=== PATIENT | female | born 1960 | race Caucasian/White ===

== ENCOUNTER 2016-09-28 10:31 | Inpatient (IN) | payer OTHER ==
[~2016-09-28] VITALS: Ht 162.6 cm; Wt 77.2 kg
[2016-09-28] VITALS (18 sets, daily range): BP systolic 89–134; BP diastolic 57–91
[~2016-09-28 10:31] MED LIST: BACLOFEN20 MG PO; CLONAZEPA PO; FLEXERIL10 MG PO; HALDOL0.5 MG PO; LIORESAL10 MG PO; LYRICA150 MG PO; METFORMI PO; OXYCODONE PO; SIMVASTATIN PO; SINGULAIR10 MG PO; ZYRTEC10 M1 PO; [UNRECOGNIZED DRUG - OTHER] PO
[2016-09-28 11:11] LABS: BASOPHIL COUNT 0.1 K/uL (0-0.1); EOSINOPHIL (%) 0 % (0-5); IMMATURE GRANULOCYTE (%) 2.7 % (0.0-0.7); IMMATURE GRANULOCYTE COUNT 0.9 K/uL; INSTRUMENT ABS NEUTROPHIL CT 29.8 K/uL; LYMPHOCYTE COUNT 1.3 K/uL (1.0-2.8); MEAN PLAT.VOLUME 9.5 uM^3 (9.5-12.4); MONOCYTE COUNT 1.4 K/uL (0-0.8); NEUTROPHIL (%) 89.4 % (45-76); NEUTROPHIL COUNT 29.8 K/uL (1.8-6.4); PLATELET COUNT 787 K/uL (156-360)
[2016-09-28 11:24] LABS: HEMATOCRIT 31.7 % (36.0-46.0); MCH 28.4 PG (29.0-34.0); MCHC 32.2 G/DL (30.0-36.0); MCV 88.3 FL (83-99); RBC DIS.WIDTH-CV 13.9 % (11.8-14.6); RBC DIS.WIDTH-SD 44.9 % (39-53); RED BLOOD COUNT 3.59 M/uL (3.80-5.20)
[2016-09-28 11:25] LABS: WHITE BLOOD COUNT 33.6 K/uL (4.1-10.2)
[2016-09-28 11:33] LABS: TROP-I INTERPRETATION NEGATIVE; TROPONIN-I < 0.01 ng/mL (0.0-0.30)
[2016-09-28 11:36] LABS: BASE EXCESS -4.1 mEq/L (-3 to +3); BICARBONATE 23.6 mEq/L (22-26); CARBOXY HGB 1.7 % (0-5); PCO2 55 mm Hg (35-45); PO2 97 mm Hg (80-100)
[2016-09-28 11:37] LABS: SITE RB; pH 7.24 (7.35-7.45)
[2016-09-28 11:37] LABS: INFLUENZA A VIRAL ANTIGEN NEGATIVE; INFLUENZA B VIRAL ANTIGEN NEGATIVE
[2016-09-28 11:38] LABS: COMMENTS - BLOOD GASES C+; DEVICE NRBM; FI02 100 %; O2 FLOW 15 L/MIN; TOTAL RESP RATE 12 resp/min
[2016-09-28 12:51] LABS: BASE EXCESS -5.2 mEq/L (-3 to +3); BICARBONATE 22.3 mEq/L (22-26); CARBOXY HGB 1.7 % (0-5); METHEMOGLOBIN 1.2 % (0-1.5); PCO2 52 mm Hg (35-45); PO2 67 mm Hg (80-100)
[2016-09-28 12:52] LABS: COMMENTS - BLOOD GASES C+; DEVICE MASK VENT; FI02 60 %; MODE SPONT; PEEP 5 CM/H20; PRES. SUPPORT 10 CM/H2O; SITE LR; TOTAL RESP RATE 12 resp/min; pH 7.24 (7.35-7.45)
[2016-09-28 13:22] LABS: CHLORIDE 102 mEq/L (99-109); POTASSIUM 5.7 mEq/L (3.7-5.4); SODIUM 139 mEq/L (136-147)
[2016-09-28 13:23] LABS: GLUCOSE 131 mg/dL (70-99)
[2016-09-28 13:25] LABS: ANION GAP 17 MEQ/L (2-14)
[2016-09-28 13:27] LABS: GFR ESTIMATE (CALCULATED) 22 mL/min/
[2016-09-28 13:28] LABS: UREA NITROGEN (BUN) 42 mg/dL (9-23)
[2016-09-28] MEDS ORDERED: FUROSEMIDE20 MG PO (15:35)
[2016-09-28] MEDS ORDERED: LEVOTHYROXINE50 MCG PO (15:35)
[2016-09-28] MEDS ORDERED: TRADJENTA5 MG PO (15:36)
[2016-09-28] MEDS ORDERED: PROTONIX40 MG PO (15:37)
[2016-09-28] MEDS ORDERED: ASPIR-LOW81 MG PO (15:37)
[2016-09-28] MEDS ORDERED: PRAVASTATIN SOD80 MG PO (15:38)
[2016-09-28] MEDS ORDERED: ATENOLOL50 MG PO (15:39)
[2016-09-28] MEDS ORDERED: DICLOFENAC POTA50 MG PO (15:39)
[2016-09-28] MEDS ORDERED: CLONAZEPAM2 MG PO (15:40)
[2016-09-28] MEDS ORDERED: METFORMIN HCL500 M1 PO (15:40)
[2016-09-28] MEDS ORDERED: CYCLOBENZAPRINE10 MG PO (15:42)
[2016-09-28] MEDS ORDERED: GABAPENTIN100 MG PO (15:44)
[2016-09-28] MEDS ORDERED: NORCO 5/3251 TABLET PO (15:46)
[2016-09-28] MEDS ORDERED: BACLOFEN10 MG PO (15:50)
[2016-09-28] MEDS ORDERED: TIZANIDINE HCL4 MG PO (15:54)
[2016-09-28] MEDS ORDERED: ESCITALOPRAM OX10 MG PO (15:55)
[2016-09-28 18:07] LABS: METH RESISTANT S AUREUS PCR NEGATIVE (NEGATIVE); PROBE CHECK PASS; SPECIMEN PROCESSING CONTROL PASS
[2016-09-28 19:00] LABS: EOSINOPHIL (%) 0.1 % (0-5); HEMATOCRIT 31.3 % (36.0-46.0); IMMATURE GRANULOCYTE (%) 1.4 % (0.0-0.7); IMMATURE GRANULOCYTE COUNT 0.4 K/uL; INSTRUMENT ABS NEUTROPHIL CT 23.6 K/uL; MCH 29.3 PG (29.0-34.0); MCHC 32.3 G/DL (30.0-36.0); MCV 90.7 FL (83-99); MEAN PLAT.VOLUME 9.3 uM^3 (9.5-12.4); MONOCYTE (%) 4.2 % (3-12); MONOCYTE COUNT 1.1 K/uL (0-0.8); NEUTROPHIL COUNT 23.6 K/uL (1.8-6.4); PLATELET COUNT 751 K/uL (156-360); RBC DIS.WIDTH-CV 14.4 % (11.8-14.6); RBC DIS.WIDTH-SD 47.7 % (39-53); RED BLOOD COUNT 3.45 M/uL (3.80-5.20); WHITE BLOOD COUNT 27.1 K/uL (4.1-10.2)
[2016-09-28 19:24] LABS: ALKALINE PHOSPHATASE 184 IU/L (3-129); ANION GAP 12 MEQ/L (2-14); CHLORIDE 100 MEQ/L (99-109); GFR ESTIMATE (CALCULATED) 26 mL/min/; MAGNESIUM 2.3 mg/dl (1.3-2.7); SAMPLE HEMOLYSIS CHECK 0; SAMPLE ICTERIC CHECK 0; SAMPLE LIPEMIA CHECK 0; SODIUM 137 MEQ/L (136-147); TOTAL BILIRUBIN 0.4 MG/DL (0.0-1.0); UREA NITROGEN (BUN) 38 mg/dL (9-23)
[2016-09-28 19:27] LABS: GLUCOSE 81 mg/dL (70-99); POTASSIUM 4.5 MEQ/L (3.7-5.4)
[2016-09-28 20:04] LABS: BASE EXCESS -2.3 mEq/L (-3 to +3); BICARBONATE 25.1 mEq/L (22-26); CARBOXY HGB 1.7 % (0-5); COMMENTS - BLOOD GASES A+C+; DEVICE NCHH; FI02 50 %; METHEMOGLOBIN 1.6 % (0-1.5); O2 FLOW 30 L/MIN; PCO2 56 mm Hg (35-45); PO2 60 mm Hg (80-100); SITE LR; pH 7.26 (7.35-7.45)
[2016-09-28 20:05] LABS: TOTAL RESP RATE 16 resp/min
[2016-09-28 20:14] LABS: POINT-OF-CARE METER ID UU14174217
[2016-09-28 21:27] LABS: ADD MIUA? YES; BILIRUBIN NEGATIVE; BLOOD MODERATE; COLOR YELLOW ((YELLOW)); GLUCOSE (STRIP) NEGATIVE; KETONES NEGATIVE; LEUKOCYTES LARGE; NITRITE POSITIVE; PROTEIN (STRIP) NEGATIVE; SPECIFIC GRAVITY 1.005 (1.000-1.030); UROBILINOGEN 0.2 MG/DL (0.2-1.0)
[2016-09-28 21:41] LABS: BACTERIA 2+ /HPF; EPITHELIAL CELLS NONE SEEN /HPF; MUCUS NONE SEEN /LPF; RED BLOOD CELLS 0-5 /HPF (0-5); UCUL ADDED? YES; UNCLASSIFIED CASTS 0-5 /LPF; UNCLASSIFIED CRYSTALS 3+ /HPF; WHITE BLOOD CELLS TNTC /HPF (0-5); WHITE BLOOD CELLS CLUMP MANY /HPF (0-5)
[2016-09-29] VITALS (23 sets, daily range): BP systolic 93–152; BP diastolic 47–69
[2016-09-29 00:23] LABS: POINT-OF-CARE METER ID UU13113803
[2016-09-29 05:54] LABS: BASOPHIL COUNT 0.1 K/uL (0-0.1); EOSINOPHIL (%) 0 % (0-5); HEMATOCRIT 28.8 % (36.0-46.0); IMMATURE GRANULOCYTE (%) 1.6 % (0.0-0.7); IMMATURE GRANULOCYTE COUNT 0.4 K/uL; INSTRUMENT ABS NEUTROPHIL CT 22.7 K/uL; LYMPHOCYTE COUNT 1.3 K/uL (1.0-2.8); MCH 29.3 PG (29.0-34.0); MCHC 31.9 G/DL (30.0-36.0); MCV 91.7 FL (83-99); MEAN PLAT.VOLUME 9.5 uM^3 (9.5-12.4); MONOCYTE (%) 4.5 % (3-12); MONOCYTE COUNT 1.1 K/uL (0-0.8); NEUTROPHIL (%) 88.7 % (45-76); NEUTROPHIL COUNT 22.7 K/uL (1.8-6.4); PLATELET COUNT 702 K/uL (156-360); RBC DIS.WIDTH-CV 14.6 % (11.8-14.6); RBC DIS.WIDTH-SD 48.7 % (39-53); RED BLOOD COUNT 3.14 M/uL (3.80-5.20); WHITE BLOOD COUNT 25.5 K/uL (4.1-10.2)
[2016-09-29 06:23] LABS: ANION GAP 14 MEQ/L (2-14); CHLORIDE 107 MEQ/L (99-109); GLUCOSE 98 mg/dL (70-99); POTASSIUM 5.1 MEQ/L (3.7-5.4); SAMPLE HEMOLYSIS CHECK 0; SAMPLE ICTERIC CHECK 0; SAMPLE LIPEMIA CHECK 0; UREA NITROGEN (BUN) 29 mg/dL (9-23)
[2016-09-29 06:27] LABS: GFR ESTIMATE (CALCULATED) 36 mL/min/; SODIUM 144 MEQ/L (136-147)
[2016-09-29 08:26] LABS: INTERNAL CONTROL VALID? YES
[2016-09-29 12:49] LABS: POINT-OF-CARE METER ID UU13113803
[2016-09-29 17:54] LABS: POINT-OF-CARE METER ID UU13113803
[2016-09-30] VITALS (15 sets, daily range): BP systolic 87–134; BP diastolic 46–72
[2016-09-30 01:06] LABS: POINT-OF-CARE METER ID UU14174217
[2016-09-30 05:28] LABS: POINT-OF-CARE METER ID UU14174217
[2016-09-30 06:17] LABS: BASOPHIL COUNT 0.1 K/uL (0-0.1); EOSINOPHIL (%) 0.6 % (0-5); EOSINOPHIL COUNT 0.1 K/uL (0-0.3); HEMATOCRIT 25.6 % (36.0-46.0); IMMATURE GRANULOCYTE (%) 2.4 % (0.0-0.7); IMMATURE GRANULOCYTE COUNT 0.5 K/uL; INSTRUMENT ABS NEUTROPHIL CT 15.5 K/uL; LYMPHOCYTE COUNT 1.8 K/uL (1.0-2.8); MCH 29.2 PG (29.0-34.0); MCHC 31.6 G/DL (30.0-36.0); MCV 92.4 FL (83-99); MEAN PLAT.VOLUME 9.3 uM^3 (9.5-12.4); MONOCYTE (%) 8.3 % (3-12); MONOCYTE COUNT 1.6 K/uL (0-0.8); NEUTROPHIL (%) 79.4 % (45-76); NEUTROPHIL COUNT 15.5 K/uL (1.8-6.4); PLATELET COUNT 662 K/uL (156-360); RBC DIS.WIDTH-CV 14.9 % (11.8-14.6); RBC DIS.WIDTH-SD 50.4 % (39-53); RED BLOOD COUNT 2.77 M/uL (3.80-5.20); WHITE BLOOD COUNT 19.5 K/uL (4.1-10.2)
[2016-09-30 06:47] LABS: ANION GAP 11 MEQ/L (2-14); CHLORIDE 107 MEQ/L (99-109); GFR ESTIMATE (CALCULATED) 45 mL/min/; GLUCOSE 130 mg/dL (70-99); MAGNESIUM 1.6 mg/dl (1.3-2.7); POTASSIUM 4.5 MEQ/L (3.7-5.4); SAMPLE HEMOLYSIS CHECK 0; SAMPLE ICTERIC CHECK 0; SAMPLE LIPEMIA CHECK 0; SODIUM 144 MEQ/L (136-147); UREA NITROGEN (BUN) 19 mg/dL (9-23)
[2016-10-01] VITALS (7 sets, daily range): BP systolic 106–122; BP diastolic 57–103
[2016-10-01 05:16] LABS: POINT-OF-CARE METER ID UU13113803
[2016-10-01 06:05] LABS: EOSINOPHIL (%) 0.3 % (0-5); HEMATOCRIT 26.2 % (36.0-46.0); IMMATURE GRANULOCYTE (%) 2.6 % (0.0-0.7); IMMATURE GRANULOCYTE COUNT 0.4 K/uL; INSTRUMENT ABS NEUTROPHIL CT 12.2 K/uL; LYMPHOCYTE COUNT 1.6 K/uL (1.0-2.8); MCH 28.9 PG (29.0-34.0); MCHC 31.7 G/DL (30.0-36.0); MCV 91.3 FL (83-99); MEAN PLAT.VOLUME 9.5 uM^3 (9.5-12.4); MONOCYTE (%) 7.7 % (3-12); MONOCYTE COUNT 1.2 K/uL (0-0.8); NEUTROPHIL (%) 78.8 % (45-76); NEUTROPHIL COUNT 12.2 K/uL (1.8-6.4); PLATELET COUNT 689 K/uL (156-360); RBC DIS.WIDTH-CV 14.8 % (11.8-14.6); RED BLOOD COUNT 2.87 M/uL (3.80-5.20); WHITE BLOOD COUNT 15.4 K/uL (4.1-10.2)
[2016-10-01 06:35] LABS: ANION GAP 11 MEQ/L (2-14); CHLORIDE 106 MEQ/L (99-109); GFR ESTIMATE (CALCULATED) 55 mL/min/; GLUCOSE 145 mg/dL (70-99); SAMPLE HEMOLYSIS CHECK 2; SAMPLE ICTERIC CHECK 0; SAMPLE LIPEMIA CHECK 0; SODIUM 143 MEQ/L (136-147); UREA NITROGEN (BUN) 14 mg/dL (9-23)
[2016-10-01 06:37] LABS: MAGNESIUM 1.9 mg/dl (1.3-2.7); POTASSIUM 5.4 MEQ/L (3.7-5.4)
[2016-10-01 11:31] LABS: POINT-OF-CARE METER ID UU13113803
[2016-10-01 16:33] LABS: POINT-OF-CARE METER ID UU13113803
[2016-10-02 00:18] VITALS: BP 146/74
[2016-10-02 06:49] LABS: ALKALINE PHOSPHATASE 128 IU/L (3-129); ANION GAP 12 MEQ/L (2-14); CHLORIDE 105 MEQ/L (99-109); GFR ESTIMATE (CALCULATED) > 59 mL/min/; GLUCOSE 127 mg/dL (70-99); MAGNESIUM 1.7 mg/dl (1.3-2.7); POTASSIUM 4.3 MEQ/L (3.7-5.4); SAMPLE HEMOLYSIS CHECK 0; SAMPLE ICTERIC CHECK 0; SAMPLE LIPEMIA CHECK 0; SODIUM 144 MEQ/L (136-147); TOTAL BILIRUBIN 0.3 MG/DL (0.0-1.0); UREA NITROGEN (BUN) 14 mg/dL (9-23)
[2016-10-02 06:55] VITALS: BP 131/75
[2016-10-02 07:15] LABS: EOSINOPHIL (%) 0 % (0-5); HEMATOCRIT 25.3 % (36.0-46.0); IMMATURE GRANULOCYTE (%) 3.6 % (0.0-0.7); IMMATURE GRANULOCYTE COUNT 0.7 K/uL; INSTRUMENT ABS NEUTROPHIL CT 13.9 K/uL; MCH 29.2 PG (29.0-34.0); MCV 91.3 FL (83-99); MEAN PLAT.VOLUME 9.7 uM^3 (9.5-12.4); MONOCYTE (%) 7.8 % (3-12); MONOCYTE COUNT 1.4 K/uL (0-0.8); NEUTROPHIL (%) 77.5 % (45-76); NEUTROPHIL COUNT 13.9 K/uL (1.8-6.4); PLATELET COUNT 729 K/uL (156-360); RBC DIS.WIDTH-CV 14.9 % (11.8-14.6); RBC DIS.WIDTH-SD 49.2 % (39-53); RED BLOOD COUNT 2.77 M/uL (3.80-5.20); WHITE BLOOD COUNT 17.9 K/uL (4.1-10.2)
[2016-10-02 08:45] LABS: IRON 69 MCG/DL (35-150)
[2016-10-02 10:13] LABS: GLUCOSE 120 mg/dL (70-99)
[2016-10-02 11:37] LABS: POINT-OF-CARE METER ID UU13113725
[2016-10-02 15:12] VITALS: BP 147/71
[2016-10-02 16:25] LABS: POINT-OF-CARE METER ID UU13113725
[2016-10-02 20:46] LABS: POINT-OF-CARE METER ID UU13113725
[2016-10-02 22:24] VITALS: BP 177/82
[2016-10-03 05:46] LABS: POINT-OF-CARE METER ID UU13113725
[2016-10-03 06:04] LABS: EOSINOPHIL (%) 0 % (0-5); HEMATOCRIT 26.3 % (36.0-46.0); IMMATURE GRANULOCYTE (%) 4.3 % (0.0-0.7); IMMATURE GRANULOCYTE COUNT 0.7 K/uL; INSTRUMENT ABS NEUTROPHIL CT 12.8 K/uL; LYMPHOCYTE COUNT 1.8 K/uL (1.0-2.8); MCH 29.2 PG (29.0-34.0); MCHC 31.2 G/DL (30.0-36.0); MCV 93.6 FL (83-99); MEAN PLAT.VOLUME 9.6 uM^3 (9.5-12.4); MONOCYTE (%) 6.9 % (3-12); MONOCYTE COUNT 1.1 K/uL (0-0.8); NEUTROPHIL COUNT 12.8 K/uL (1.8-6.4); NRBC (%) 0.2 /100 WBC (0-0); PLATELET COUNT 667 K/uL (156-360); RBC DIS.WIDTH-SD 50.6 % (39-53); RED BLOOD COUNT 2.81 M/uL (3.80-5.20); WHITE BLOOD COUNT 16.4 K/uL (4.1-10.2)
[2016-10-03 06:47] VITALS: BP 133/82
[2016-10-03 07:01] LABS: ALKALINE PHOSPHATASE 117 IU/L (3-129); ANION GAP 12 MEQ/L (2-14); CHLORIDE 107 MEQ/L (99-109); GFR ESTIMATE (CALCULATED) 55 mL/min/; GLUCOSE 113 mg/dL (70-99); MAGNESIUM 1.8 mg/dl (1.3-2.7); POTASSIUM 4.6 MEQ/L (3.7-5.4); SAMPLE HEMOLYSIS CHECK 0; SAMPLE ICTERIC CHECK 0; SAMPLE LIPEMIA CHECK 0; SODIUM 144 MEQ/L (136-147); UREA NITROGEN (BUN) 19 mg/dL (9-23)
[2016-10-03 07:05] LABS: TOTAL BILIRUBIN 0.4 MG/DL (0.0-1.0)
[2016-10-03 15:22] VITALS: BP 150/79
[2016-10-03 16:38] LABS: POINT-OF-CARE METER ID UU13113725
[2016-10-03 20:43] LABS: POINT-OF-CARE METER ID UU13113725
[2016-10-03 23:00] VITALS: BP 144/92
[2016-10-04 05:58] LABS: POINT-OF-CARE METER ID UU13113725
[2016-10-04 06:47] LABS: BASOPHIL COUNT 0.1 K/uL (0-0.1); EOSINOPHIL (%) 0.1 % (0-5); HEMATOCRIT 28.5 % (36.0-46.0); IMMATURE GRANULOCYTE (%) 4.3 % (0.0-0.7); IMMATURE GRANULOCYTE COUNT 0.8 K/uL; INSTRUMENT ABS NEUTROPHIL CT 13.5 K/uL; MCH 28.8 PG (29.0-34.0); MCHC 30.9 G/DL (30.0-36.0); MCV 93.1 FL (83-99); MEAN PLAT.VOLUME 9.6 uM^3 (9.5-12.4); MONOCYTE (%) 7.9 % (3-12); MONOCYTE COUNT 1.5 K/uL (0-0.8); NEUTROPHIL (%) 71.5 % (45-76); NEUTROPHIL COUNT 13.5 K/uL (1.8-6.4); NRBC (%) 0.5 /100 WBC (0-0); PLATELET COUNT 746 K/uL (156-360); RBC DIS.WIDTH-SD 49.8 % (39-53); RED BLOOD COUNT 3.06 M/uL (3.80-5.20); WHITE BLOOD COUNT 18.9 K/uL (4.1-10.2)
[2016-10-04 07:15] VITALS: BP 173/82
[2016-10-04 07:23] LABS: ANION GAP 12 MEQ/L (2-14); CHLORIDE 106 MEQ/L (99-109); GFR ESTIMATE (CALCULATED) 55 mL/min/; GLUCOSE 97 mg/dL (70-99); MAGNESIUM 1.7 mg/dl (1.3-2.7); POTASSIUM 4.1 MEQ/L (3.7-5.4); SAMPLE HEMOLYSIS CHECK 0; SAMPLE ICTERIC CHECK 0; SAMPLE LIPEMIA CHECK 0; SODIUM 145 MEQ/L (136-147); UREA NITROGEN (BUN) 20 mg/dL (9-23)
[2016-10-04] MEDS ORDERED: PREDNISONE10 MG PO (10:23)
[2016-10-04] MEDS ORDERED: QUETIAPINE FUMA25 MG PO (10:23)
[2016-10-04] MEDS ORDERED: LEVETIRACETAM500 MG PO (10:23)
[2016-10-04] MEDS ORDERED: BACTRIM,SEPT1 TABLET PO (10:39)
[2016-10-04] MEDS ORDERED: ZITHROMAX250 MG PO (10:39)
[2016-10-04 15:08] VITALS: BP 125/73
[2016-10-04 16:37] LABS: POINT-OF-CARE METER ID UU13113725
[2016-10-04 23:03] VITALS: BP 148/92
[2016-10-05 06:02] LABS: POINT-OF-CARE METER ID UU13113725
[2016-10-05 06:59] LABS: EOSINOPHIL (%) 0.1 % (0-5); HEMATOCRIT 29.2 % (36.0-46.0); IMMATURE GRANULOCYTE (%) 2.9 % (0.0-0.7); IMMATURE GRANULOCYTE COUNT 0.6 K/uL; INSTRUMENT ABS NEUTROPHIL CT 14.4 K/uL; LYMPHOCYTE COUNT 3.2 K/uL (1.0-2.8); MCH 28.5 PG (29.0-34.0); MCHC 31.2 G/DL (30.0-36.0); MCV 91.5 FL (83-99); MEAN PLAT.VOLUME 9.6 uM^3 (9.5-12.4); MONOCYTE (%) 6.3 % (3-12); MONOCYTE COUNT 1.2 K/uL (0-0.8); NEUTROPHIL COUNT 14.4 K/uL (1.8-6.4); NRBC (%) 0.4 /100 WBC (0-0); PLATELET COUNT 709 K/uL (156-360); RED BLOOD COUNT 3.19 M/uL (3.80-5.20); WHITE BLOOD COUNT 19.5 K/uL (4.1-10.2)
[2016-10-05 07:23] LABS: ANION GAP 13 MEQ/L (2-14); CHLORIDE 107 MEQ/L (99-109); GFR ESTIMATE (CALCULATED) 55 mL/min/; GLUCOSE 84 mg/dL (70-99); MAGNESIUM 1.6 mg/dl (1.3-2.7); POTASSIUM 4.1 MEQ/L (3.7-5.4); SAMPLE HEMOLYSIS CHECK 0; SAMPLE ICTERIC CHECK 0; SAMPLE LIPEMIA CHECK 0; SODIUM 145 MEQ/L (136-147); UREA NITROGEN (BUN) 18 mg/dL (9-23)
[2016-10-05 07:31] VITALS: BP 155/74
[2016-10-05 11:37] LABS: POINT-OF-CARE METER ID UU13113725
[2016-10-05 16:27] VITALS: BP 164/80
[2016-10-05 16:33] LABS: POINT-OF-CARE METER ID UU13113725
[2016-10-05 18:07] LABS: ADD MIUA? NO; BILIRUBIN NEGATIVE; BLOOD NEGATIVE; COLOR YELLOW ((YELLOW)); GLUCOSE (STRIP) NEGATIVE; KETONES 5; LEUKOCYTES NEGATIVE; NITRITE NEGATIVE; PROTEIN (STRIP) NEGATIVE; SPECIFIC GRAVITY 1.016 (1.000-1.030); UCUL ADDED? NO; UROBILINOGEN 0.2 MG/DL (0.2-1.0)
[2016-10-05 21:04] LABS: POINT-OF-CARE METER ID UU13113725
[2016-10-05 23:46] VITALS: BP 158/80
[2016-10-06 07:24] LABS: POINT-OF-CARE METER ID UU13113725
[2016-10-06 07:28] LABS: BASOPHIL COUNT 0.1 K/uL (0-0.1); EOSINOPHIL (%) 0.1 % (0-5); HEMATOCRIT 29.9 % (36.0-46.0); IMMATURE GRANULOCYTE (%) 2.1 % (0.0-0.7); IMMATURE GRANULOCYTE COUNT 0.4 K/uL; LYMPHOCYTE COUNT 3.5 K/uL (1.0-2.8); MCH 29.2 PG (29.0-34.0); MCHC 31.1 G/DL (30.0-36.0); MCV 93.7 FL (83-99); MEAN PLAT.VOLUME 9.7 uM^3 (9.5-12.4); MONOCYTE (%) 5.7 % (3-12); NEUTROPHIL (%) 72.2 % (45-76); NRBC (%) 0.1 /100 WBC (0-0); PLATELET COUNT 596 K/uL (156-360); RBC DIS.WIDTH-CV 15.2 % (11.8-14.6); RBC DIS.WIDTH-SD 49.7 % (39-53); RED BLOOD COUNT 3.19 M/uL (3.80-5.20); WHITE BLOOD COUNT 17.9 K/uL (4.1-10.2)
[2016-10-06 07:55] VITALS: BP 149/74
[2016-10-06 07:57] LABS: ALKALINE PHOSPHATASE 94 IU/L (3-129); ANION GAP 10 MEQ/L (2-14); CHLORIDE 105 MEQ/L (99-109); GFR ESTIMATE (CALCULATED) > 59 mL/min/; GLUCOSE 98 mg/dL (70-99); MAGNESIUM 1.7 mg/dl (1.3-2.7); POTASSIUM 3.6 MEQ/L (3.7-5.4); SAMPLE HEMOLYSIS CHECK 0; SAMPLE ICTERIC CHECK 0; SAMPLE LIPEMIA CHECK 0; SODIUM 143 MEQ/L (136-147); UREA NITROGEN (BUN) 16 mg/dL (9-23)
[2016-10-06 07:58] LABS: TOTAL BILIRUBIN 0.5 MG/DL (0.0-1.0)
[2016-10-06 11:23] VITALS: BP 164/75
[2016-10-06 15:43] VITALS: BP 188/85
[2016-10-06 16:22] LABS: POINT-OF-CARE METER ID UU13113725
[2016-10-06 23:25] VITALS: BP 158/73
[2016-10-07 06:53] LABS: EOSINOPHIL (%) 0.4 % (0-5); EOSINOPHIL COUNT 0.1 K/uL (0-0.3); HEMATOCRIT 33.8 % (36.0-46.0); IMMATURE GRANULOCYTE (%) 1.6 % (0.0-0.7); IMMATURE GRANULOCYTE COUNT 0.3 K/uL; LYMPHOCYTE COUNT 3.3 K/uL (1.0-2.8); MCH 28.4 PG (29.0-34.0); MCHC 30.8 G/DL (30.0-36.0); MCV 92.3 FL (83-99); MEAN PLAT.VOLUME 9.8 uM^3 (9.5-12.4); MONOCYTE (%) 6.4 % (3-12); NEUTROPHIL (%) 70.1 % (45-76); NRBC (%) 0.1 /100 WBC (0-0); PLATELET COUNT 698 K/uL (156-360); RBC DIS.WIDTH-CV 15.2 % (11.8-14.6); RBC DIS.WIDTH-SD 49.1 % (39-53); RED BLOOD COUNT 3.66 M/uL (3.80-5.20); WHITE BLOOD COUNT 15.8 K/uL (4.1-10.2)
[2016-10-07 07:08] LABS: ANION GAP 14 MEQ/L (2-14); CHLORIDE 103 MEQ/L (99-109); GFR ESTIMATE (CALCULATED) 55 mL/min/; GLUCOSE 72 mg/dL (70-99); MAGNESIUM 1.6 mg/dl (1.3-2.7); POTASSIUM 4.3 MEQ/L (3.7-5.4); SAMPLE HEMOLYSIS CHECK 0; SAMPLE ICTERIC CHECK 0; SAMPLE LIPEMIA CHECK 0; SODIUM 144 MEQ/L (136-147); UREA NITROGEN (BUN) 14 mg/dL (9-23)
[2016-10-07 08:51] VITALS: BP 160/80
[2016-10-07 11:38] LABS: POINT-OF-CARE METER ID UU13113725
[2016-10-07 17:17] LABS: POINT-OF-CARE METER ID UU13113725
[2016-10-07 17:51] VITALS: BP 150/85
[2016-10-07 18:47] LABS: BASE EXCESS 1.7 mEq/L (-3 to +3); BICARBONATE 25.7 mEq/L (22-26); CARBOXY HGB 1.7 % (0-5); METHEMOGLOBIN 1.6 % (0-1.5); PO2 59 mm Hg (80-100)
[2016-10-07 18:48] LABS: COMMENTS - BLOOD GASES A+C+; DEVICE ROOM AIR; FI02 21 %; O2 FLOW 0 L/MIN; PCO2 37 mm Hg (35-45); SITE LR; TOTAL RESP RATE 18 resp/min; pH 7.45 (7.35-7.45)
[2016-10-07 20:57] LABS: POINT-OF-CARE METER ID UU13113725
[2016-10-07 22:57] LABS: POINT-OF-CARE METER ID UU13113725
[2016-10-07 23:03] VITALS: BP 142/75
[2016-10-08 01:11] LABS: ADD MIUA? NO; BILIRUBIN NEGATIVE; BLOOD NEGATIVE; COLOR YELLOW ((YELLOW)); GLUCOSE (STRIP) NEGATIVE; KETONES 20; LEUKOCYTES NEGATIVE; NITRITE NEGATIVE; PROTEIN (STRIP) NEGATIVE; SPECIFIC GRAVITY 1.016 (1.000-1.030); UCUL ADDED? NO; UROBILINOGEN 0.2 MG/DL (0.2-1.0)
[2016-10-08 02:42] LABS: POINT-OF-CARE METER ID UU13113725
[2016-10-08 05:42] LABS: POINT-OF-CARE METER ID UU13113725
[2016-10-08 09:24] LABS: EOSINOPHIL (%) 0 % (0-5); HEMATOCRIT 31.9 % (36.0-46.0); IMMATURE GRANULOCYTE (%) 0.9 % (0.0-0.7); IMMATURE GRANULOCYTE COUNT 0.2 K/uL; LYMPHOCYTE COUNT 2.2 K/uL (1.0-2.8); MCH 29.2 PG (29.0-34.0); MCHC 31.3 G/DL (30.0-36.0); MEAN PLAT.VOLUME 9.9 uM^3 (9.5-12.4); MONOCYTE (%) 5.2 % (3-12); NEUTROPHIL (%) 82.2 % (45-76); PLATELET COUNT 626 K/uL (156-360); RBC DIS.WIDTH-CV 16.3 % (11.8-14.6); RBC DIS.WIDTH-SD 50.5 % (39-53); RED BLOOD COUNT 3.43 M/uL (3.80-5.20); WHITE BLOOD COUNT 19.4 K/uL (4.1-10.2)
[2016-10-08 11:22] LABS: ANION GAP 17 MEQ/L (2-14); CHLORIDE 108 MEQ/L (99-109); GFR ESTIMATE (CALCULATED) 50 mL/min/; GLUCOSE 86 mg/dL (70-99); POTASSIUM 4.2 MEQ/L (3.7-5.4); SAMPLE HEMOLYSIS CHECK 0; SAMPLE ICTERIC CHECK 0; SAMPLE LIPEMIA CHECK 0; SODIUM 150 MEQ/L (136-147); UREA NITROGEN (BUN) 20 mg/dL (9-23)
[2016-10-08 11:26] LABS: MAGNESIUM 1.9 mg/dl (1.3-2.7)
[2016-10-08 11:32] LABS: POINT-OF-CARE METER ID UU13113725
[2016-10-08 16:03] VITALS: BP 134/75
[2016-10-08 16:19] LABS: POINT-OF-CARE METER ID UU13113725
[2016-10-08 17:14] LABS: APPEARANCE CLEAR/COLORLESS; CSF EOSINOPHILS 0 % (0-25); MONO RAW COUNT 88; MONONUCLEAR WBC'S 100 % (50-90); POLYNUCLEAR WBC'S 0 % (0-3); RED CELL AREA COUNTED 18; RED CELL COUNT 0 /MM^3 (0-1); RED CELL DILUTION 1; WBC AREA COUNTED 18; WBC DILUTION 1; WHITE CELL COUNT 3 /MM^3 (0-5); WHITE CELL RAW COUNT 6
[2016-10-08 20:51] LABS: POINT-OF-CARE METER ID UU13113725
[2016-10-09] VITALS (12 sets, daily range): BP systolic 85–154; BP diastolic 38–78
[2016-10-09 06:59] LABS: BASOPHIL COUNT 0.1 K/uL (0-0.1); EOSINOPHIL (%) 0.1 % (0-5); HEMATOCRIT 35.8 % (36.0-46.0); IMMATURE GRANULOCYTE (%) 1.2 % (0.0-0.7); IMMATURE GRANULOCYTE COUNT 0.2 K/uL; INSTRUMENT ABS NEUTROPHIL CT 14.2 K/uL; LYMPHOCYTE COUNT 1.6 K/uL (1.0-2.8); MCH 29.3 PG (29.0-34.0); MCHC 31.6 G/DL (30.0-36.0); MCV 92.7 FL (83-99); MEAN PLAT.VOLUME 10.6 uM^3 (9.5-12.4); MONOCYTE (%) 5.6 % (3-12); NEUTROPHIL (%) 83.1 % (45-76); NEUTROPHIL COUNT 14.2 K/uL (1.8-6.4); NRBC (%) 0.3 /100 WBC (0-0); PLATELET COUNT 622 K/uL (156-360); RBC DIS.WIDTH-CV 17.2 % (11.8-14.6); RBC DIS.WIDTH-SD 53.1 % (39-53); RED BLOOD COUNT 3.86 M/uL (3.80-5.20)
[2016-10-09 07:25] LABS: ALKALINE PHOSPHATASE 105 IU/L (3-129); ANION GAP 27 MEQ/L (2-14); CHLORIDE 113 MEQ/L (99-109); GFR ESTIMATE (CALCULATED) 29 mL/min/; GLUCOSE 87 mg/dL (70-99); MAGNESIUM 1.8 mg/dl (1.3-2.7); POTASSIUM 4.7 MEQ/L (3.7-5.4); SAMPLE HEMOLYSIS CHECK 0; SAMPLE ICTERIC CHECK 0; SAMPLE LIPEMIA CHECK 0; SODIUM 160 MEQ/L (136-147); TOTAL BILIRUBIN 0.9 MG/DL (0.0-1.0); UREA NITROGEN (BUN) 32 mg/dL (9-23)
[2016-10-09 07:27] LABS: POINT-OF-CARE METER ID UU13113725
[2016-10-09 08:17] LABS: BASE EXCESS -1.5 mEq/L (-3 to +3); BICARBONATE 22.8 mEq/L (22-26); METHEMOGLOBIN 1.5 % (0-1.5); PCO2 36 mm Hg (35-45); pH 7.41 (7.35-7.45)
[2016-10-09 08:18] LABS: COMMENTS - BLOOD GASES A+C+; DEVICE 840 PB; FI02 100 %; MECHANICAL RATE 14 resp/min; MODE AC; PEEP 5 CM/H20; PO2 356 mm Hg (80-100); SITE LR; TIDAL VOLUME 450 ML; TOTAL RESP RATE 16 resp/min
[2016-10-09 09:05] LABS: MAGNESIUM 1.6 mg/dl (1.3-2.7)
[2016-10-09 09:38] LABS: INTER. NORMALIZED RATIO 1.6; PTT 24.8 (25-32)
[2016-10-09 09:44] LABS: ADD MIUA? YES; BILIRUBIN NEGATIVE; BLOOD MODERATE; COLOR YELLOW ((YELLOW)); GLUCOSE (STRIP) NEGATIVE; KETONES NEGATIVE; LEUKOCYTES NEGATIVE; NITRITE NEGATIVE; PROTEIN (STRIP) NEGATIVE; SPECIFIC GRAVITY 1.009 (1.000-1.030); UROBILINOGEN 0.2 MG/DL (0.2-1.0)
[2016-10-09 10:59] LABS: METH RESISTANT S AUREUS PCR NEGATIVE (NEGATIVE); PROBE CHECK PASS; SPECIMEN PROCESSING CONTROL PASS
[2016-10-09 11:26] LABS: BACTERIA RARE /HPF; EPITHELIAL CELLS RARE /HPF; MUCUS NONE SEEN /LPF; RED BLOOD CELLS 0-5 /HPF (0-5); UCUL ADDED? NO
[2016-10-09 12:37] LABS: POINT-OF-CARE METER ID UU13113731
[2016-10-09 14:20] LABS: ANION GAP 15 MEQ/L (2-14); CHLORIDE 121 MEQ/L (99-109); GFR ESTIMATE (CALCULATED) 33 mL/min/; GLUCOSE 116 mg/dL (70-99); SAMPLE HEMOLYSIS CHECK 0; SAMPLE ICTERIC CHECK 0; SAMPLE LIPEMIA CHECK 0; SODIUM 154 MEQ/L (136-147); UREA NITROGEN (BUN) 34 mg/dL (9-23)
[2016-10-09 15:19] LABS: POTASSIUM 2.8 MEQ/L (3.7-5.4)
[2016-10-09 17:43] LABS: TROP-I INTERPRETATION INDETERMINATE; TROPONIN-I 0.31 ng/mL (0.0-0.30)
[2016-10-09 20:00] LABS: BASE EXCESS -4.5 mEq/L (-3 to +3); BICARBONATE 20.2 mEq/L (22-26); CARBOXY HGB 1.5 % (0-5); COMMENTS - BLOOD GASES C+; DEVICE VENTILATOR; FI02 30 %; MECHANICAL RATE 14 resp/min; METHEMOGLOBIN 1.4 % (0-1.5); MODE AC; PCO2 35 mm Hg (35-45); PEEP 5 CM/H20; PO2 58 mm Hg (80-100); SITE A-LINE; TIDAL VOLUME 450 ML; TOTAL RESP RATE 18 resp/min; pH 7.37 (7.35-7.45)
[2016-10-09 20:44] LABS: ANION GAP 14 MEQ/L (2-14); CHLORIDE 119 MEQ/L (99-109); GFR ESTIMATE (CALCULATED) 38 mL/min/; SAMPLE HEMOLYSIS CHECK 0; SAMPLE ICTERIC CHECK 0; SAMPLE LIPEMIA CHECK 0; SODIUM 152 MEQ/L (136-147); UREA NITROGEN (BUN) 34 mg/dL (9-23)
[2016-10-09 20:45] LABS: TROP-I INTERPRETATION NEGATIVE; TROPONIN-I 0.27 ng/mL (0.0-0.30)
[2016-10-09 20:52] LABS: ALKALINE PHOSPHATASE 66 IU/L (3-129); GLUCOSE 81 mg/dL (70-99); MAGNESIUM 2.1 mg/dl (1.3-2.7); TOTAL BILIRUBIN 0.7 MG/DL (0.0-1.0)
[2016-10-09 21:01] LABS: HEMATOCRIT 27.7 % (36.0-46.0); MCH 29.5 PG (29.0-34.0); MCHC 31.4 G/DL (30.0-36.0); MCV 93.9 FL (83-99); NRBC (%) 2.7 /100 WBC (0-0); RBC DIS.WIDTH-CV 17.9 % (11.8-14.6); RBC DIS.WIDTH-SD 55.7 % (39-53); WHITE BLOOD COUNT 11.7 K/uL (4.1-10.2)
[2016-10-09 21:02] LABS: RED BLOOD COUNT 2.95 M/uL (3.80-5.20)
[2016-10-09 22:47] LABS: PLATELET COUNT 186 K/uL (156-360)
[2016-10-10 00:48] LABS: CHLORIDE 122 mEq/L (99-109); SODIUM 153 mEq/L (136-147)
[2016-10-10 00:49] LABS: MAGNESIUM 2.1 mg/dL (1.3-2.7)
[2016-10-10 00:50] LABS: GLUCOSE 73 mg/dL (70-99)
[2016-10-10 00:52] LABS: ANION GAP 14 MEQ/L (2-14)
[2016-10-10 00:54] LABS: GFR ESTIMATE (CALCULATED) 38 mL/min/
[2016-10-10 00:55] LABS: UREA NITROGEN (BUN) 36 mg/dL (9-23)
[2016-10-10 01:00] LABS: TROP-I INTERPRETATION NEGATIVE; TROPONIN-I 0.21 ng/mL (0.0-0.30)
[2016-10-10 01:03] LABS: POTASSIUM 4.3 mEq/L (3.7-5.4)
[2016-10-10 05:50] LABS: EOSINOPHIL (%) 0 % (0-5); HEMATOCRIT 28.8 % (36.0-46.0); IMMATURE GRANULOCYTE (%) 1.1 % (0.0-0.7); IMMATURE GRANULOCYTE COUNT 0.1 K/uL; INSTRUMENT ABS NEUTROPHIL CT 9.5 K/uL; LYMPHOCYTE COUNT 0.9 K/uL (1.0-2.8); MCHC 30.6 G/DL (30.0-36.0); MEAN PLAT.VOLUME 11.1 uM^3 (9.5-12.4); MONOCYTE (%) 6.4 % (3-12); MONOCYTE COUNT 0.7 K/uL (0-0.8); NEUTROPHIL (%) 84.2 % (45-76); NEUTROPHIL COUNT 9.5 K/uL (1.8-6.4); NRBC (%) 2.1 /100 WBC (0-0); PLATELET COUNT 150 K/uL (156-360); RBC DIS.WIDTH-CV 18.2 % (11.8-14.6); RBC DIS.WIDTH-SD 59.2 % (39-53); RED BLOOD COUNT 3.03 M/uL (3.80-5.20); WHITE BLOOD COUNT 11.3 K/uL (4.1-10.2)
[2016-10-10 07:00] VITALS: BP 105/52
[2016-10-10 07:41] LABS: ANION GAP 14 MEQ/L (2-14); CHLORIDE 119 MEQ/L (99-109); GFR ESTIMATE (CALCULATED) 38 mL/min/; GLUCOSE 87 mg/dL (70-99); MAGNESIUM 2.2 mg/dl (1.3-2.7); SAMPLE HEMOLYSIS CHECK 0; SAMPLE ICTERIC CHECK 0; SAMPLE LIPEMIA CHECK 0; SODIUM 155 MEQ/L (136-147); UREA NITROGEN (BUN) 34 mg/dL (9-23)
[2016-10-10 07:42] LABS: POTASSIUM 3.3 MEQ/L (3.7-5.4)
[2016-10-10 12:18] LABS: POINT-OF-CARE METER ID UU14174217
[2016-10-10 19:04] LABS: BASE EXCESS 1.9 mEq/L (-3 to +3); CARBOXY HGB 1.7 % (0-5); METHEMOGLOBIN 1.8 % (0-1.5)
[2016-10-10 19:05] LABS: PCO2 30 mm Hg (35-45); PO2 72 mm Hg (80-100); pH 7.52 (7.35-7.45)
[2016-10-10 19:06] LABS: BICARBONATE 24.5 mEq/L (22-26); COMMENTS - BLOOD GASES C+ANA; DEVICE 840 PB; FI02 30 %; MECHANICAL RATE 14 resp/min; MODE AC; PEEP 5 CM/H20; SITE ALINE; TIDAL VOLUME 450 ML; TOTAL RESP RATE 22 resp/min
[2016-10-10 21:00] VITALS: BP 91/50
[2016-10-10 22:00] VITALS: BP 90/46
[2016-10-10 22:29] LABS: C DIFF TOXIN NEGATIVE (NEGATIVE)
[2016-10-10 22:31] LABS: PROBE CHECK PASS; SPECIMEN PROCESSING CONTROL PASS
[2016-10-11] VITALS (9 sets, daily range): BP systolic 80–116; BP diastolic 38–61
[2016-10-11 00:30] LABS: POINT-OF-CARE METER ID UU13113803
[2016-10-11 05:41] LABS: POINT-OF-CARE METER ID UU14174217
[2016-10-11 06:19] LABS: CHLORIDE 109 MEQ/L (99-109); GFR ESTIMATE (CALCULATED) > 59 mL/min/; GLUCOSE 134 mg/dL (70-99); POTASSIUM 2.7 MEQ/L (3.7-5.4); SODIUM 141 MEQ/L (136-147); UREA NITROGEN (BUN) 17 mg/dL (9-23)
[2016-10-11 06:31] LABS: ANION GAP 9 MEQ/L (2-14); SAMPLE HEMOLYSIS CHECK 0; SAMPLE ICTERIC CHECK 0; SAMPLE LIPEMIA CHECK 0
[2016-10-11 06:35] LABS: MAGNESIUM 1.6 mg/dl (1.3-2.7)
[2016-10-11 07:22] LABS: MCH 28.8 PG (29.0-34.0); MCHC 30.8 G/DL (30.0-36.0); MCV 93.6 FL (83-99); NRBC (%) 0.3 /100 WBC (0-0); RBC DIS.WIDTH-CV 17.6 % (11.8-14.6); RED BLOOD COUNT 2.67 M/uL (3.80-5.20); WHITE BLOOD COUNT 10.8 K/uL (4.1-10.2)
[2016-10-11 08:53] LABS: EOSINOPHIL (%) 0.1 % (0-5); IMMATURE GRANULOCYTE (%) 0.7 % (0.0-0.7); IMMATURE GRANULOCYTE COUNT 0.1 K/uL; INSTRUMENT ABS NEUTROPHIL CT 9.4 K/uL; LYMPHOCYTE COUNT 0.7 K/uL (1.0-2.8); MEAN PLAT.VOLUME 12.3 uM^3 (9.5-12.4); MONOCYTE (%) 4.9 % (3-12); MONOCYTE COUNT 0.5 K/uL (0-0.8); NEUTROPHIL (%) 87.8 % (45-76); NEUTROPHIL COUNT 9.4 K/uL (1.8-6.4)
[2016-10-11 08:55] LABS: PLATELET COUNT 85 K/uL (156-360)
[2016-10-12] VITALS (17 sets, daily range): BP systolic 98–143; BP diastolic 56–77
[2016-10-12 01:37] LABS: POINT-OF-CARE METER ID UU13113803; POINT-OF-CARE USER ID RADDRS44
[2016-10-12 05:56] LABS: EOSINOPHIL (%) 0.1 % (0-5); HEMATOCRIT 25.3 % (36.0-46.0); IMMATURE GRANULOCYTE (%) 0.4 % (0.0-0.7); INSTRUMENT ABS NEUTROPHIL CT 8.4 K/uL; LYMPHOCYTE COUNT 0.8 K/uL (1.0-2.8); MCH 29.2 PG (29.0-34.0); MCHC 31.6 G/DL (30.0-36.0); MCV 92.3 FL (83-99); MEAN PLAT.VOLUME 12.8 uM^3 (9.5-12.4); MONOCYTE (%) 6.6 % (3-12); MONOCYTE COUNT 0.7 K/uL (0-0.8); NEUTROPHIL (%) 85.2 % (45-76); NEUTROPHIL COUNT 8.4 K/uL (1.8-6.4); PLATELET COUNT 75 K/uL (156-360); RBC DIS.WIDTH-CV 17.2 % (11.8-14.6); RBC DIS.WIDTH-SD 55.8 % (39-53); RED BLOOD COUNT 2.74 M/uL (3.80-5.20); WHITE BLOOD COUNT 9.9 K/uL (4.1-10.2)
[2016-10-12 06:25] LABS: ANION GAP 5 MEQ/L (2-14); CHLORIDE 109 MEQ/L (99-109); GFR ESTIMATE (CALCULATED) > 59 mL/min/; GLUCOSE 130 mg/dL (70-99); MAGNESIUM 1.6 mg/dl (1.3-2.7); SAMPLE HEMOLYSIS CHECK 0; SAMPLE ICTERIC CHECK 0; SAMPLE LIPEMIA CHECK 0; SODIUM 146 MEQ/L (136-147); UREA NITROGEN (BUN) 7 mg/dL (9-23)
[2016-10-12 11:50] LABS: BASE EXCESS 8.6 mEq/L (-3 to +3); BICARBONATE 33.4 mEq/L (22-26); CARBOXY HGB 2.1 % (0-5); COMMENTS - BLOOD GASES A+C+; METHEMOGLOBIN 1.3 % (0-1.5); PCO2 47 mm Hg (35-45); PO2 68 mm Hg (80-100); SITE RR; pH 7.46 (7.35-7.45)
[2016-10-12 11:51] LABS: FI02 21 %
[2016-10-12 20:42] LABS: ANION GAP 8 MEQ/L (2-14); CHLORIDE 105 MEQ/L (99-109); GFR ESTIMATE (CALCULATED) > 59 mL/min/; GLUCOSE 128 mg/dL (70-99); MAGNESIUM 2.1 mg/dl (1.3-2.7); POTASSIUM 3.1 MEQ/L (3.7-5.4); SAMPLE HEMOLYSIS CHECK 1; SAMPLE ICTERIC CHECK 0; SAMPLE LIPEMIA CHECK 0; SODIUM 144 MEQ/L (136-147); UREA NITROGEN (BUN) 4 mg/dL (9-23)
[2016-10-12 23:28] LABS: POINT-OF-CARE USER ID RADDRS44
[2016-10-13] VITALS (23 sets, daily range): BP systolic 118–157; BP diastolic 50–104
[2016-10-13 06:27] LABS: EOSINOPHIL (%) 0.3 % (0-5); HEMATOCRIT 25.3 % (36.0-46.0); IMMATURE GRANULOCYTE (%) 0.7 % (0.0-0.7); IMMATURE GRANULOCYTE COUNT 0.1 K/uL; INSTRUMENT ABS NEUTROPHIL CT 5.1 K/uL; MCH 29.1 PG (29.0-34.0); MCHC 30.8 G/DL (30.0-36.0); MCV 94.4 FL (83-99); MEAN PLAT.VOLUME 12.1 uM^3 (9.5-12.4); MONOCYTE (%) 8.6 % (3-12); MONOCYTE COUNT 0.6 K/uL (0-0.8); NEUTROPHIL COUNT 5.1 K/uL (1.8-6.4); NRBC (%) 0.3 /100 WBC (0-0); RBC DIS.WIDTH-SD 57.3 % (39-53); RED BLOOD COUNT 2.68 M/uL (3.80-5.20)
[2016-10-13 06:29] LABS: PLATELET COUNT 110 K/uL (156-360); WHITE BLOOD COUNT 6.8 K/uL (4.1-10.2)
[2016-10-13 06:48] LABS: ANION GAP 8 MEQ/L (2-14); CHLORIDE 108 MEQ/L (99-109); GFR ESTIMATE (CALCULATED) > 59 mL/min/; GLUCOSE 163 mg/dL (70-99); POTASSIUM 3.4 MEQ/L (3.7-5.4); SAMPLE HEMOLYSIS CHECK 0; SAMPLE ICTERIC CHECK 0; SAMPLE LIPEMIA CHECK 0; SODIUM 148 MEQ/L (136-147); UREA NITROGEN (BUN) 4 mg/dL (9-23)
[2016-10-13 13:31] LABS: POINT-OF-CARE METER ID UU13113731
[2016-10-13 18:00] LABS: POINT-OF-CARE METER ID UU13113731
[2016-10-13 20:15] LABS: ANION GAP 6 MEQ/L (2-14); CHLORIDE 108 MEQ/L (99-109); GFR ESTIMATE (CALCULATED) > 59 mL/min/; MAGNESIUM 1.9 mg/dl (1.3-2.7); POTASSIUM 3.4 MEQ/L (3.7-5.4); SAMPLE HEMOLYSIS CHECK 0; SAMPLE ICTERIC CHECK 0; SAMPLE LIPEMIA CHECK 0; SODIUM 147 MEQ/L (136-147); UREA NITROGEN (BUN) 4 mg/dL (9-23)
[2016-10-13 20:16] LABS: GLUCOSE 117 mg/dL (70-99)
[2016-10-14] VITALS (14 sets, daily range): BP systolic 116–154; BP diastolic 60–86
[2016-10-14 00:18] LABS: POINT-OF-CARE METER ID UU13113731; POINT-OF-CARE USER ID RADDRS44
[2016-10-14 05:19] LABS: POINT-OF-CARE METER ID UU14174217; POINT-OF-CARE USER ID RADDRS44
[2016-10-14 06:15] LABS: EOSINOPHIL (%) 0.5 % (0-5); HEMATOCRIT 26.6 % (36.0-46.0); IMMATURE GRANULOCYTE (%) 1.4 % (0.0-0.7); IMMATURE GRANULOCYTE COUNT 0.1 K/uL; INSTRUMENT ABS NEUTROPHIL CT 5.9 K/uL; LYMPHOCYTE COUNT 1.6 K/uL (1.0-2.8); MCH 29.2 PG (29.0-34.0); MCHC 30.5 G/DL (30.0-36.0); MEAN PLAT.VOLUME 11.3 uM^3 (9.5-12.4); MONOCYTE (%) 9.2 % (3-12); MONOCYTE COUNT 0.8 K/uL (0-0.8); NEUTROPHIL (%) 69.9 % (45-76); NEUTROPHIL COUNT 5.9 K/uL (1.8-6.4); NRBC (%) 0.2 /100 WBC (0-0); RBC DIS.WIDTH-CV 17.4 % (11.8-14.6); RBC DIS.WIDTH-SD 58.6 % (39-53); RED BLOOD COUNT 2.77 M/uL (3.80-5.20); WHITE BLOOD COUNT 8.4 K/uL (4.1-10.2)
[2016-10-14 06:17] LABS: PLATELET COUNT 164 K/uL (156-360)
[2016-10-14 06:58] LABS: ANION GAP 8 MEQ/L (2-14); CHLORIDE 109 MEQ/L (99-109); GFR ESTIMATE (CALCULATED) > 59 mL/min/; MAGNESIUM 1.8 mg/dl (1.3-2.7); POTASSIUM 3.8 MEQ/L (3.7-5.4); SAMPLE HEMOLYSIS CHECK 0; SAMPLE ICTERIC CHECK 0; SAMPLE LIPEMIA CHECK 0; SODIUM 148 MEQ/L (136-147); UREA NITROGEN (BUN) 4 mg/dL (9-23)
[2016-10-14 06:59] LABS: GLUCOSE 200 mg/dL (70-99)
[2016-10-14 09:17] LABS: ANION GAP 5 MEQ/L (2-14); CHLORIDE 107 MEQ/L (99-109); MAGNESIUM 1.8 mg/dl (1.3-2.7); POTASSIUM 3.8 MEQ/L (3.7-5.4); SAMPLE HEMOLYSIS CHECK 0; SAMPLE ICTERIC CHECK 0; SAMPLE LIPEMIA CHECK 0; SODIUM 146 MEQ/L (136-147)
[2016-10-14 09:23] LABS: GFR ESTIMATE (CALCULATED) > 59 mL/min/; GLUCOSE 222 mg/dL (70-99); UREA NITROGEN (BUN) 5 mg/dL (9-23)
[2016-10-14 12:28] LABS: POINT-OF-CARE METER ID UU13113731
[2016-10-14 18:00] LABS: POINT-OF-CARE METER ID UU13113731
[2016-10-14 20:10] LABS: ANION GAP 6 MEQ/L (2-14); CHLORIDE 106 MEQ/L (99-109); MAGNESIUM 1.9 mg/dl (1.3-2.7); SAMPLE HEMOLYSIS CHECK 0; SAMPLE ICTERIC CHECK 0; SAMPLE LIPEMIA CHECK 0; SODIUM 146 MEQ/L (136-147)
[2016-10-14 20:15] LABS: GFR ESTIMATE (CALCULATED) > 59 mL/min/; GLUCOSE 162 mg/dL (70-99); UREA NITROGEN (BUN) 6 mg/dL (9-23)
[2016-10-15] VITALS (10 sets, daily range): BP systolic 108–148; BP diastolic 62–81
[2016-10-15 05:48] LABS: EOSINOPHIL (%) 0.5 % (0-5); HEMATOCRIT 25.3 % (36.0-46.0); IMMATURE GRANULOCYTE (%) 1.9 % (0.0-0.7); IMMATURE GRANULOCYTE COUNT 0.2 K/uL; INSTRUMENT ABS NEUTROPHIL CT 4.2 K/uL; LYMPHOCYTE COUNT 2.8 K/uL (1.0-2.8); MCH 29.2 PG (29.0-34.0); MCHC 30.8 G/DL (30.0-36.0); MCV 94.8 FL (83-99); MEAN PLAT.VOLUME 10.5 uM^3 (9.5-12.4); MONOCYTE (%) 10.9 % (3-12); MONOCYTE COUNT 0.9 K/uL (0-0.8); NEUTROPHIL (%) 51.9 % (45-76); NEUTROPHIL COUNT 4.2 K/uL (1.8-6.4); RBC DIS.WIDTH-CV 17.7 % (11.8-14.6); RBC DIS.WIDTH-SD 56.9 % (39-53); RED BLOOD COUNT 2.67 M/uL (3.80-5.20)
[2016-10-15 05:52] LABS: PLATELET COUNT 249 K/uL (156-360)
[2016-10-15 06:00] LABS: ANION GAP 6 MEQ/L (2-14); CHLORIDE 107 MEQ/L (99-109); GFR ESTIMATE (CALCULATED) > 59 mL/min/; GLUCOSE 99 mg/dL (70-99); MAGNESIUM 1.8 mg/dl (1.3-2.7); POTASSIUM 3.9 MEQ/L (3.7-5.4); SAMPLE HEMOLYSIS CHECK 0; SAMPLE ICTERIC CHECK 0; SAMPLE LIPEMIA CHECK 0; SODIUM 146 MEQ/L (136-147); UREA NITROGEN (BUN) 6 mg/dL (9-23)
[2016-10-15 12:42] LABS: POINT-OF-CARE METER ID UU13113731
[2016-10-15 17:25] LABS: POINT-OF-CARE METER ID UU13113731
[2016-10-15 20:28] LABS: ANION GAP 8 MEQ/L (2-14); CHLORIDE 106 MEQ/L (99-109); MAGNESIUM 1.9 mg/dl (1.3-2.7); POTASSIUM 3.8 MEQ/L (3.7-5.4); SAMPLE HEMOLYSIS CHECK 0; SAMPLE ICTERIC CHECK 0; SAMPLE LIPEMIA CHECK 0; SODIUM 145 MEQ/L (136-147)
[2016-10-15 20:33] LABS: GFR ESTIMATE (CALCULATED) > 59 mL/min/; GLUCOSE 166 mg/dL (70-99); UREA NITROGEN (BUN) 8 mg/dL (9-23)
[2016-10-15 21:40] LABS: POINT-OF-CARE METER ID UU13113731
[2016-10-16] VITALS (17 sets, daily range): BP systolic 111–135; BP diastolic 52–82
[2016-10-16 06:10] LABS: CHLORIDE 106 MEQ/L (99-109); POTASSIUM 3.7 MEQ/L (3.7-5.4); SODIUM 145 MEQ/L (136-147)
[2016-10-16 06:35] LABS: ALKALINE PHOSPHATASE 76 IU/L (3-129); ANION GAP 8 MEQ/L (2-14); GFR ESTIMATE (CALCULATED) > 59 mL/min/; MAGNESIUM 1.9 mg/dl (1.3-2.7); SAMPLE HEMOLYSIS CHECK 0; SAMPLE ICTERIC CHECK 0; SAMPLE LIPEMIA CHECK 0; UREA NITROGEN (BUN) 8 mg/dL (9-23)
[2016-10-16 06:40] LABS: EOSINOPHIL (%) 0.6 % (0-5); HEMATOCRIT 25.2 % (36.0-46.0); IMMATURE GRANULOCYTE (%) 1.9 % (0.0-0.7); IMMATURE GRANULOCYTE COUNT 0.1 K/uL; INSTRUMENT ABS NEUTROPHIL CT 3.8 K/uL; LYMPHOCYTE COUNT 2.4 K/uL (1.0-2.8); MCH 29.4 PG (29.0-34.0); MCHC 30.6 G/DL (30.0-36.0); MCV 96.2 FL (83-99); MEAN PLAT.VOLUME 10.2 uM^3 (9.5-12.4); MONOCYTE COUNT 0.9 K/uL (0-0.8); NEUTROPHIL (%) 52.5 % (45-76); NEUTROPHIL COUNT 3.8 K/uL (1.8-6.4); PLATELET COUNT 338 K/uL (156-360); RBC DIS.WIDTH-CV 19.1 % (11.8-14.6); RBC DIS.WIDTH-SD 61.9 % (39-53); RED BLOOD COUNT 2.62 M/uL (3.80-5.20); WHITE BLOOD COUNT 7.2 K/uL (4.1-10.2)
[2016-10-16 06:46] LABS: GLUCOSE 114 mg/dL (70-99); TOTAL BILIRUBIN 0.5 MG/DL (0.0-1.0)
[2016-10-16 12:56] LABS: POINT-OF-CARE METER ID UU13113803
[2016-10-16 16:51] LABS: POINT-OF-CARE METER ID UU13113803
[2016-10-16 20:55] LABS: ANION GAP 9 MEQ/L (2-14); CHLORIDE 104 MEQ/L (99-109); GFR ESTIMATE (CALCULATED) > 59 mL/min/; MAGNESIUM 2.1 mg/dl (1.3-2.7); POTASSIUM 3.6 MEQ/L (3.7-5.4); SAMPLE HEMOLYSIS CHECK 0; SAMPLE ICTERIC CHECK 0; SAMPLE LIPEMIA CHECK 0; SODIUM 143 MEQ/L (136-147); UREA NITROGEN (BUN) 9 mg/dL (9-23)
[2016-10-16 20:56] LABS: GLUCOSE 175 mg/dL (70-99)
[2016-10-16 21:56] LABS: POINT-OF-CARE METER ID UU13113803
[2016-10-17] VITALS (12 sets, daily range): BP systolic 108–182; BP diastolic 48–79
[2016-10-17 06:18] LABS: EOSINOPHIL (%) 0.3 % (0-5); HEMATOCRIT 27.5 % (36.0-46.0); IMMATURE GRANULOCYTE (%) 1.8 % (0.0-0.7); IMMATURE GRANULOCYTE COUNT 0.1 K/uL; INSTRUMENT ABS NEUTROPHIL CT 3.9 K/uL; LYMPHOCYTE COUNT 2.3 K/uL (1.0-2.8); MCH 29.4 PG (29.0-34.0); MCHC 30.5 G/DL (30.0-36.0); MCV 96.2 FL (83-99); MONOCYTE (%) 13.5 % (3-12); NEUTROPHIL (%) 53.4 % (45-76); NEUTROPHIL COUNT 3.9 K/uL (1.8-6.4); RBC DIS.WIDTH-CV 19.6 % (11.8-14.6); RBC DIS.WIDTH-SD 66.9 % (39-53); RED BLOOD COUNT 2.86 M/uL (3.80-5.20); WHITE BLOOD COUNT 7.3 K/uL (4.1-10.2)
[2016-10-17 06:23] LABS: ALKALINE PHOSPHATASE 82 IU/L (3-129); ANION GAP 9 MEQ/L (2-14); CHLORIDE 105 MEQ/L (99-109); GFR ESTIMATE (CALCULATED) > 59 mL/min/; GLUCOSE 126 mg/dL (70-99); POTASSIUM 3.9 MEQ/L (3.7-5.4); SAMPLE HEMOLYSIS CHECK 0; SAMPLE ICTERIC CHECK 0; SAMPLE LIPEMIA CHECK 0; SODIUM 144 MEQ/L (136-147); TOTAL BILIRUBIN 0.4 MG/DL (0.0-1.0); UREA NITROGEN (BUN) 7 mg/dL (9-23)
[2016-10-17 06:47] LABS: PLATELET COUNT 479 K/uL (156-360)
[2016-10-17 17:25] LABS: POINT-OF-CARE METER ID UU14162508
[2016-10-17 21:54] LABS: POINT-OF-CARE METER ID UU14162508
[2016-10-18 03:14] VITALS: BP 125/65
[2016-10-18 07:00] VITALS: BP 123/63
[2016-10-18 07:15] LABS: HEMATOCRIT 26.1 % (36.0-46.0); MCH 29.6 PG (29.0-34.0); MCHC 30.3 G/DL (30.0-36.0); MCV 97.8 FL (83-99); MEAN PLAT.VOLUME 9.4 uM^3 (9.5-12.4); PLATELET COUNT 502 K/uL (156-360); RBC DIS.WIDTH-CV 20.2 % (11.8-14.6); RBC DIS.WIDTH-SD 69.1 % (39-53); RED BLOOD COUNT 2.67 M/uL (3.80-5.20); WHITE BLOOD COUNT 7.1 K/uL (4.1-10.2)
[2016-10-18 07:25] LABS: EOSINOPHIL (%) 0.1 % (0-5); IMMATURE GRANULOCYTE (%) 1.3 % (0.0-0.7); IMMATURE GRANULOCYTE COUNT 0.1 K/uL; INSTRUMENT ABS NEUTROPHIL CT 3.6 K/uL; LYMPHOCYTE COUNT 2.3 K/uL (1.0-2.8); MONOCYTE (%) 14.8 % (3-12); NEUTROPHIL (%) 50.9 % (45-76); NEUTROPHIL COUNT 3.6 K/uL (1.8-6.4)
[2016-10-18 07:46] LABS: ANION GAP 6 MEQ/L (2-14); CHLORIDE 105 MEQ/L (99-109); GFR ESTIMATE (CALCULATED) > 59 mL/min/; MAGNESIUM 2.1 mg/dl (1.3-2.7); POTASSIUM 3.9 MEQ/L (3.7-5.4); SAMPLE HEMOLYSIS CHECK 0; SAMPLE ICTERIC CHECK 0; SAMPLE LIPEMIA CHECK 0; SODIUM 144 MEQ/L (136-147); UREA NITROGEN (BUN) 7 mg/dL (9-23)
[2016-10-18 07:53] LABS: GLUCOSE 91 mg/dL (70-99)
[2016-10-18 11:30] LABS: POINT-OF-CARE METER ID UU14162508
[2016-10-18] MEDS ORDERED: AMOX TR-K CLV1 EAC4 PO (14:32)
[2016-10-18] MEDS ORDERED: QUETIAPINE FUMA50 MG PO (14:32)
[2016-10-18] MEDS ORDERED: NOVOLOG PE100 UNITS/ SC (14:32)
[2016-10-18] MEDS ORDERED: DIVALPROEX SOD500 MG PO (14:32)
[2016-10-18] MEDS ORDERED: HYZAAR 50-121 TABLET PO (14:32)
[2016-10-18] MEDS ORDERED: LEVETIRACETAM750 MG PO (14:32)
[2016-10-18] MEDS ORDERED: DUONEB 2.5-0.5 M3 ML AEROSOL (14:32)
[2016-10-18 16:30] VITALS: BP 122/62
[2016-10-18 17:01] LABS: POINT-OF-CARE METER ID UU14162508
[2016-10-18 20:00] VITALS: BP 141/77
[2016-10-18 21:28] LABS: POINT-OF-CARE METER ID UU14162508
== END 2016-10-18 23:46 | DRG 208 ==
LOC: EME 10:31 → EDOF 15:24 → 5EAST 15:24 → 4WEST 15:24 → 5EAST 10-01 18:17 → 4WEST 10-09 07:29 → 5EAST 10-09 07:41 → 4WEST 10-09 07:41 → 2EAST 10-17 11:27
PROVIDERS: Anesthesiology; Emergency Medicine; Family Medicine; Internal Medicine Critical Care Medicine; Internal Medicine Nephrology; Nurse Practitioner Adult Health; Pediatrics; Psychiatry & Neurology Neurology; Specialist
DX: J96.01 Acute respiratory failure with hypoxia (principal); J44.0 Chronic obstructive pulmonary disease with (acute) lower respiratory infection; J18.9 Pneumonia, unspecified organism; Q28.2 Arteriovenous malformation of cerebral vessels; N17.9 Acute kidney failure, unspecified; N39.0 Urinary tract infection, site not specified; J44.1 Chronic obstructive pulmonary disease with (acute) exacerbation; E87.0 Hyperosmolality and hypernatremia; I69.354 Hemiplegia and hemiparesis following cerebral infarction affecting left non-dominant side; B96.20 Unspecified Escherichia coli [E. coli] as the cause of diseases classified elsewhere; E87.5 Hyperkalemia; R56.9 Unspecified convulsions; E83.51 Hypocalcemia; I95.9 Hypotension, unspecified; E87.6 Hypokalemia; E83.42 Hypomagnesemia; R41.82 Altered mental status, unspecified; D64.9 Anemia, unspecified; E83.39 Other disorders of phosphorus metabolism; D47.3 Essential (hemorrhagic) thrombocythemia; E88.81 Metabolic syndrome and other insulin resistance; J45.909 Unspecified asthma, uncomplicated; I10 Essential (primary) hypertension; E78.5 Hyperlipidemia, unspecified; B19.20 Unspecified viral hepatitis C without hepatic coma; G62.9 Polyneuropathy, unspecified; E03.9 Hypothyroidism, unspecified; E11.9 Type 2 diabetes mellitus without complications; F17.210 Nicotine dependence, cigarettes, uncomplicated; I69.392 Facial weakness following cerebral infarction; Z91.81 History of falling; Z23 Encounter for immunization
CPT/HCPCS: 31500; 36600; 36620; 62270; 70450; 70551; 71010; 71020; 71250; 77003; 80048; 80048 91; 80053; 80164; 80202; 81003; 82140; 82330; 82550; 82803; 82945; 82947 91; 82948; 83540; 83605; 83735; 83880; 84100; 84157; 84443; 84466; 84484; 84999; 85025; 85025 91; 85027; 85610; 85730; 87040; 87070; 87077; 87086; 87106; 87186; 87205; 87449; 87493; 87502; 87641; 89051; 92526 GN; 92610 GN; 93005; 94002; 94003; 94640; 94640 76; 94667; 94668; 94760; 94799; 95813; 95819; 95956; 97530 GO; 97530 GP; 99202; 99281; 99285; J0456; J0610; J0696; J1644; J1815; J1953; J2060; J2543; J2704; J3010; J3370; J3475; J3480; J7030; J7050; J7070; J7120; J7512